=== PATIENT | female | born 1980 | race Caucasian/White ===

== ENCOUNTER 2016-10-26 14:10 | Inpatient (IN) | payer OTHER ==
--- NOTE | ~2016-10-26 | PN ---
Unit #: [id number] #: [id number] Patient: HAYDEN FLORIAN [id number] [facility] [address] [place] [address] [id number] MR#: [id number] NAME: HAYDEN FLORIAN ROOM: P211 Age: 36 Sex: F Admission Date: 10/26/2016 : 1980 Attending Physician: Renato Dunlap M.D. Admitting Physician: Evens Ford PROGRESS NOTES DATE OF SERVICE: 10/30/2016 SUBJECTIVE Ms. Florian is a 36-year-old white female with substance abuse and mood disorder, who was seen today and chart was reviewed and the case was discussed with the staff. She reports doing better and this is the first time she has made that statement and appears to be getting more comfortable coming out of the detox without any complication. MENTAL STATUS EXAMINATION Young white female, who was casually dressed with fair personal hygiene, appears to be in no acute distress or discomfort. She was awake and alert on interaction with intact orientation. Her mood was anxious with a congruent affect. She denies any suicidal or homicidal ideations and also denies any auditory or visual hallucinations. Her insight and judgment remain slightly impaired. TREATMENT PLAN 1. We will continue her on her current treatment protocol. We will monitor her response and make further adjustments as needed. 2. We will continue to follow up. Dictated by... Evens Ford/littlel TD: 10/31/2016 13:41 JOB #: [id number] RADHA AGUILERA NOTES Page 1 of 1 X Renato Dunlap MD PROGRESS NOTE
--- NOTE | ~2016-10-26 | PN ---
Unit #: [id number] #: [id number] Patient: HAYDEN FLORIAN [id number] [facility] [address] [place] [address] [id number] MR#: [id number] NAME: HAYDEN FLORIAN ROOM: P211 Age: 36 Sex: F Admission Date: 10/26/2016 : 1980 Attending Physician: Renato Dunlap M.D. Admitting Physician: Renato Dunlap M.D. Primary Care Physician: Primary Care Physician Beverley AGUILERA NOTES DATE 10/28/2016 DISCUSSION Ms. Florian is a 36-year-old white female with mood disorder and substance abuse who was seen today and chart was reviewed and case was discussed with the staff. She has been anxious, withdrawn, depressed and rather seclusive to herself. Meanwhile, she has been cooperative with treatment recommendations and has been taking medications and tolerating them fairly well with no reported side effects. MENTAL STATUS EXAMINATION Young white female who was casually dressed with fair personal hygiene, appears to be in no acute distress or discomfort. She was awake and alert on interaction with intact orientation. Her mood was anxious and depressed with congruent affect. Her speech was slow and goal-directed. She denies any suicidal or homicidal ideations. Also, denies any auditory or visual hallucinations. Her insight and judgement remains slightly impaired. TREATMENT PLAN 1. We will continue her on her current medications and treatment protocol. We will monitor her response to the medication and make further adjustments as needed. 2. We will continue to follow up. Dictated by... Evens Ford/nolvia TD: 11/01/2016 03:23 JOB #: [id number] Unit #: [id number] #: [id number] Patient: HAYDEN FLORIAN PROGRESS NOTES Page 1 of 1 X Renato Dunlap MD PROGRESS NOTE
--- NOTE | ~2016-10-26 | PN ---
Unit #: [id number] #: [id number] Patient: HAYDEN FLORIAN [id number] [facility] [address] [place] [address] [id number] I MR#: [id number] NAME: HAYDEN FLORIAN ROOM: P211 Age: 36 Sex: F Admission Date: 10/26/2016 : 1980 Attending Physician: Renato Dunlap M.D. Admitting Physician: Renato Dunlap M.D. Primary Care Physician: Primary Care Physician Beverley AGUILERA NOTES DATE 10/27/2016 DISCUSSION Ms. Florian is a 36-year-old white female who was seen today and chart was reviewed and case was discussed with the staff. She has been anxious, withdrawn though has not shown any agitation, irritability and has been rather calm and cooperative with treatment recommendations. Young white female who was casually dressed with fair personal hygiene appears to be in no acute distress or discomfort. She was awake and alert with intact orientation. Her mood was anxious with congruent affect. She denies any suicidal or homicidal ideation. Her insight and judgement remains . TREATMENT PLAN 1. We will continue her on her current treatment protocol. We will monitor her response and make further adjustments as needed. 2. We will continue to follow up. Dictated by... Evens Ford/nolvia TD: 10/31/2016 04:32 JOB #: [id number] [facility] PROGRESS NOTES Page 1 of 1 X Renato Dunlap MD X PROGRESS NOTE
--- NOTE | ~2016-10-26 | DS ---
Unit #: [id number] #: [id number] [facility]: [facility]IAN [id number] [facility] [address] [id number] I MR#: [id number] NAME: HAYDEN FLORIAN ROOM: P211 Age: 36 Sex: F Admission Date: 10/26/2016 : 1980 Discharge Date: 10/31/2016 Attending Physician: Renato Dunlap M.D. DISCHARGE SUMMARY IDENTIFYING DATA Ms. Florian is a 36-year-old white female, who is a resident of [place], [place], and was self-referred to the hospital on a voluntary basis. DISCHARGE DIAGNOSES Psychiatric: Opioid dependence, moderate and acute withdrawals; opioid-induced mood disorder. Medical: None. Stressors: Moderate psychosocial stressors. HISTORY OF PRESENT ILLNESS Please see initial psychiatric evaluation for details. PAST PSYCHIATRIC HISTORY Please see initial psychiatric evaluation for details. PAST MEDICAL HISTORY Please see initial psychiatric evaluation for details. HOSPITAL COURSE The patient was admitted to the adult chemical dependency unit at [facility] and was oriented to the hospital environment. Routine p.r.n. medications were initiated, and she was started back on her home medications and medications were adjusted and she was closely monitored. She was taking the medications regularly and was tolerating them fairly well and was able to show a decent and therapeutic response and as such, it was decided that she will be discharged home and will continue treatment on an outpatient basis. DISCHARGE MEDICATIONS None. DISCHARGE CONDITION Stable. PROGNOSIS Fair. Dictated by... Renato Dunlap M.D. IAA/modl Unit #: [id number] #: [id number] Patient: HAYDEN FLORIAN TD: 10/31/2016 07:26 JOB #: [id number] DISCHARGE SUMMARY Page 1 of 1 X Renato Dunlap MD X DISCHARGE SUMMARY
--- NOTE | ~2016-10-26 | PN ---
Unit #: [id number] #: [id number] Patient: HAYDEN FLORIAN [id number] [facility] [address] [place] [address] [id number] I MR#: [id number] NAME: HAYDEN FLORIAN ROOM: P211 Age: 36 Sex: F Admission Date: 10/26/2016 : 1980 Attending Physician: Renato Dunlap M.D. Admitting Physician: Renato Dunlap M.D. Primary Care Physician: Beverley Primary Care Physician RADHA PROGRESS NOTES DATE OF SERVICE October 29, 2016 DISCUSSION Ms. Florian is a 36-year-old, white female who was seen today and chart was reviewed. Her case was discussed with the staff. She has been anxious and withdrawn, but has not shown and agitation or irritability and has been cooperative with treatment recommendations and has been taking medications and tolerating them fairly well with no reported side effects. MENTAL STATUS EXAMINATION Young, white female who was casually dressed with a fair personal hygiene and appears to be in no acute distress or discomfort. She was awake and alert on interaction with intact orientation. Her mood was anxious with a congruent affect. Her speech was slow and goal-directed. Patient denies any suicidal or homicidal ideation. Her insight and judgement remain slightly impaired. TREATMENT PLAN 1. We will continue on current medications and treatment protocol. Will monitor her response and make further adjustments as needed. 2. We will continue to follow up. Dictated by... Evens Ford/tamara TD: 11/01/2016 11:47 JOB #: [id number] Unit #: [id number] #: [id number] Patient: HAYDEN FLORIAN [facility] PROGRESS NOTES Page 1 of 1 X Renato Dunlap MD PROGRESS NOTE
--- NOTE | ~2016-10-26 | PA ---
Unit #: [id number] #: [id number] Patient: HAYDEN FLORIAN [id number] [facility] [address] [place] [address] [id number] I MR#: [id number] NAME: HAYDEN FLORIAN ROOM: P211 Age: 36 Sex: F Admission Date: 10/26/2016 : 1980 Date of Assessment: 10/26/2016 Attending Physician: Renato Dunlap M.D. Admitting Physician: Renato Dunlap M.D. Primary Care Physician: Primary Care Physician No PSYCHIATRIC ASSESSMENT DATE OF SERVICE 10/26/2016. IDENTIFYING DATA Ms. Florian is a 36-year-old , white female, who is a resident of [place], [place] and was self-referred to the hospital on a voluntary basis. CHIEF COMPLAINT "I'm here for detox. I've been using heroin and I use about a gram of heroin." HISTORY OF PRESENT ILLNESS Ms. Florian is a 36-year-old white female, who was self-referred to the hospital, stating that she is here for detox and that she has been using heroin and that she has been using a gram a day and "I've been using for the past 3 years. I've tried stopping and I was sober for about one month and I last used last night, and I'm starting to have symptoms of diarrhea, throwing up, shakes, sneezing, yawning. I'm very shaky. I feel hot and I feel cold and my body aches and I didn't sleep last night, maybe an hour. My appetite is not good. I'm starving right now, but I can't eat. I tried to come here about a month ago, but there were no beds and I've a lot of anxiety and it is hard for me to sit still." The patient was noticed to be rocking back and forth in the chairs, stating that she was feeling achy and she was very anxious and apparently was trying to come into the program to detox last month, but no beds were available, and she has since then been using drugs regularly and has not been able to stay sober, and does report significant consequences because of her addiction, stating that she lost her seven children last year due to her substance abuse issues and does report increasing depression, anxiety, irritability, feelings of hopelessness and helplessness, but denies any suicidal ideations, intent, or plan. SUBSTANCE ABUSE HISTORY The patient reports history of alcohol, cannabis, cocaine, opioids, amphetamine, benzodiazepine abuse and dependence, and currently opioids, particularly heroin has been her drug of choice as she reports that she has been using a gram of heroin a day by snorting it. PAST PSYCHIATRIC HISTORY The patient has had a history of inpatient chemical dependency treatment at [facility] in the past along with outpatient treatment at [facility], and review of the medical records indicate that currently she is Unit #: [id number] #: [id number] Patient: HAYDEN FLORIAN not active in any treatment program, is not seeing a psychiatrist, and not taking any psychotropic medications. PAST MEDICAL HISTORY No acute or chronic medical illnesses. ALLERGIES No known medication allergies. CURRENT MEDICATIONS None. PERSONAL AND SOCIAL HISTORY A 36-year-old white female, who reports that she is single, unemployed, and lives with a friend and has poor social support system. MENTAL STATUS EXAMINATION Young white female, who was casually dressed with fair personal hygiene, appears to be in no acute distress or discomfort. She was awake and alert on interaction with intact orientation to time, place, and person. Her mood was anxious and depressed with a congruent affect. Her speech was slow and restricted in content. Her thought processes were disorganized with some looseness of associations and flight of ideas. She denies any suicidal ideations, and also denies any auditory or visual hallucinations. Her insight and judgment remain significantly impaired. DIAGNOSTIC IMPRESSION Psychiatric: Opioid dependence, moderate, in acute withdrawals; opioid-induced mood disorder. Medical: None. Stressors: Moderate psychosocial stressors. TREATMENT PLAN 1. The patient has presented with history of mood disorder and substance abuse and has been decompensating and will need inpatient hospitalization for detoxification, safety, and stabilization. We will start her on detox protocol. We will closely monitor for any worsening withdrawal symptoms. 2. Supportive therapy was provided to the patient. 3. Safe, structured, and nourishing environment will be provided. ESTIMATED LENGTH OF STAY 5 to 7 days. ABILITY TO HELP SELF Limited. WILLINGNESS TO HELP SELF The patient appears to be willing to help self. PROBLEMS 1. Chronic dysphoric symptoms. 2. Chronic chemical dependency. 3. Poor social support system. DISCHARGE CRITERIA This will be contingent upon the patient's ability to show resolution of her depression and anxiety as well as her ability to stay safe to herself, particularly after discharge from the hospital. Unit #: [id number] #: [id number] Patient: HAYDEN FLORIAN Dictated by... Evens Ford/austyn TD: 10/27/2016 07:21 JOB #: [id number] PSYCHIATRIC ASSESSMENT Page 1 of 1 X Renato Dunlap MD X PSYCHIATRIC ASSESSMENT
--- NOTE | ~2016-10-26 | HP ---
Unit #: [id number] #: [id number] Patient: DAELA FLORIAN [id number] [place] [address] [id number] MR#: [id number] NAME: ADELA FLORIAN ROOM: P211 Age: 36 Sex: F Admission Date: 10/26/2016 : 1980 Attending Physician: Renato Dunlap M.D. Admitting Physician: Renato Dunlap M.D. Primary Care Physician: Primary Care Physician No HISTORY AND PHYSICAL HISTORY OF PRESENT ILLNESS Adela is a 36 year old admitted to [address] [place] [address] because of her continued drug use. She snorts heroin. PAST MEDICAL HISTORY Long history of opioid abuse to include snorting heroin. PAST SURGICAL HISTORY x2. ALLERGIES Brethine (anaphylaxis). SOCIAL HISTORY Smokes one pack per day. Denies alcohol. Admits to long history of illicit substance abuse to include heroin. FAMILY HISTORY Medically noncontributory. REVIEW OF SYSTEMS CONSTITUTIONAL: No fever or chills. HEENT: Denies any sore throat, ear pain or runny nose. CARDIOVASCULAR: Denies chest pain, irregular heart rhythm or palpitations. CHEST: Denies shortness of breath or cough. No hemoptysis. GASTROINTESTINAL: Denies nausea, vomiting, diarrhea or chronic constipation. ENDOCRINE: Denies history of increased thirst or urination. No recent significant weight loss or gain. GENITOURINARY: Denies dysuria, frequency, or hematuria. SKIN: Denies any rashes. HEMATOLOGIC: Denies history of increased bleeding or bruising. MUSCULOSKELETAL: Denies any hot, swollen joints. No generalized muscle pain. NEUROLOGIC: Denies problems with vision or speech. No frequent, severe headaches. No numbness, tingling or weakness in any extremities. Denies loss of bladder or bowel control. CURRENT MEDICATIONS No orders received at the time of this dictation. PHYSICAL EXAMINATION GENERAL: Alert, well nourished. No apparent distress. Unit #: [id number] #: [id number] Patient: ADELA FLORIAN VITAL SIGNS: Blood pressure 100/66, heart rate 80, respirations 16, and temperature 98.6. WEIGHT: 107. HEIGHT: 5 feet 3 inches. SKIN: Warm and dry without rash or lesion. HEENT: Normocephalic. TMs not viewed. Oral and nasal passages clear. Conjunctivae clear. PERRLA. EOMs intact. NECK: Supple without lymphadenopathy or thyromegaly. HEART: Regular rate and rhythm without murmur. LUNGS: Clear. ABDOMEN: Soft, nontender. : Not done. EXTREMITIES: No evidence of cyanosis, clubbing or edema. Moves all without focal deficit. NEUROLOGICAL: Grossly within normal limits. Cranial Nerves: II: Visual reynolds are intact. III, IV AND : Extraocular movements are intact. Pupils are equal, round and reactive to light. V: Facial sensation is grossly normal. VII: Facial movements and expression are normal. VIII: Auditory acuity grossly intact. IX, X: Uvula is midline. Phonation is normal. XI: Patient shrugs shoulders and turns head normally. XII: Tongue protrudes in the midline. Sensory and Motor Function: Sensory and motor sensation is grossly normal. Motor: moves all extremities well. Coordination: Gait is normal. Deep Tendon Reflexes: Intact. IMPRESSION Psychiatric admission. RECOMMENDATIONS PSYCHIATRIC: Per psychiatrist. MEDICAL: I see no contraindications to participate in this facility's activities. MEDICAL PROGNOSIS Good. MEDICAL CONDITION Stable. Dictated by... Ginger Mcbride PKrystynaAMaynor. for Evens Dai/fabi TD: 10/27/2016 07:43 JOB #: [id number] Unit #: [id number] #: [id number] Patient: ADELA FLORIAN HISTORY AND PHYSICAL Page 1 of 1 X Ginger Mcbride HISTORY AND PHYSICAL
[2016-10-27 09:39] LABS: BASOPHIL% 0.2 % (0-2.5); EOSINOPHIL% 0.3 % (0.0-7.0); HEMATOCRIT 40.6 % (35.0-45.0); LYMPHOCYTE# 1.5 X10e3 (1.0-3.5); LYMPHOCYTE% 19.2 % (17.0-45.0); MEAN CELL VOLUME 88.5 FL (83-96); MEAN CORPUSCULAR HEMOGLOBIN 30.4 PG (28-34); MEAN CORPUSCULAR HGB CONC 34.4 g/dL (30-36); MEAN PLATELET VOLUME 9.6 FL (6.5-11.5); MONOCYTE# 0.4 X10e3 (0-1.0); MONOCYTE% 4.6 % (3.0-12.0); NEUTROPHIL# 6.1 X10e3 (1.5-7.1); NEUTROPHIL% 75.7 % (40-75); PLATELET COUNT 218 X10e3 (140-420); RED BLOOD COUNT 4.59 X10e (3.90-5.30); RED CELL DISTRIBUTION WIDTH 13.1 % (11.0-15.5)
[2016-10-27 09:46] LABS: DIFF IND NO
[2016-10-27 10:21] LABS: THYROID STIMULATING HORMONE 0.1 uIU/ml (0.34-5.60)
[2016-10-27 10:27] LABS: ALBUMIN SERUM 4.4 g/dL (3.5-5.0); BILIRUBIN,TOTAL 0.7 mg/dL (0.2-2.0); BUN/CREATININE RATIO 23.33; CALCIUM SERUM 9.9 mg/dL (8.4-10.2); CREATININE SERUM 0.6 mg/dL (0.6-1.4); FREE THYROXIN (T4) 0.87 ng/dL (0.58-1.64); GLOM FILT RATE Estimated 118.1 mL/min (>60); POTASSIUM 3.5 mmol/L (3.5-5.1)
[2016-10-28 10:39] LABS: URINE APPEARANCE CLOUDY; URINE BILIRUBIN NEG (NEG); URINE BLOOD NEG (NEG); URINE COLOR YELLOW; URINE GLUCOSE NEG (NEG); URINE KETONE NEG (NEG); URINE LEUKOCYTE ESTERASE TRACE (NEG); URINE NITRATE NEG (NEG); URINE PH 6.5 (5-8); URINE PROTEIN NEG (NEG); URINE SPECIFIC GRAVITY 1.021 (1.003-1.035)
[2016-10-28 10:42] LABS: URBCS1 AUWI 0-2 /[HPF] (0-2); URINE SQUAMOUS EPITHELIAL CELL FEW /[HPF]
[2016-10-28 11:14] LABS: AMPHETAMINE NEG (NEG); BARBITURATES NEG (NEG); BENZODIAZEPINES NEG (NEG); COCAINE NEG (NEG); MARIJUANA NEG (NEG); OPIATES POS (NEG); TRICYCLIC ANTIDEPRESSANTS NEG (NEG); U METHADONE NEG (NEG)
== END 2016-10-31 10:05 | DRG 897 ==
LOC: P2S 14:10
PROVIDERS: Psychiatry & Neurology Psychiatry
PROC: HZ2ZZZZ Detoxification Services for Substance Abuse Treatment (ICD-10-PCS; principal; 2016-10-26)
DX: F11.23 Opioid dependence with withdrawal (principal); F11.24 Opioid dependence with opioid-induced mood disorder; F17.210 Nicotine dependence, cigarettes, uncomplicated
CPT/HCPCS: 80053; 80307; 81003; 84439; 84443; 84703; 85025; 86592; J2550